=== PATIENT | male | born 2000 | race Caucasian/White ===

== ENCOUNTER 2022-04-23 19:18 | Inpatient (IN) | payer BC ==
[2022-04-23] MEDS ORDERED: Albuterol/Ipratropium 3.0-0.5 MG/3 ML Neb Soln NEB ONE (20:14)
[2022-04-23] MEDS ORDERED: Albuterol/Ipratropium 4 GM Inhalation Spray INH ONE (20:25)
[2022-04-23] MEDS ORDERED: Ketorolac 30 MG/ML SDV IVPUSH ONE (20:44)
[2022-04-23 20:55] LABS: CARBON DIOXIDE,CO2 28.1 mmol/L (21.0-32.0); POTASSIUM,K 3.8 mmol/L (3.5-5.1)
[2022-04-23] MEDS ORDERED: Sodium Chloride 0.9% 10 ML Syringe FLUSH PRN ×2 (21:12→21:23)
[2022-04-23] MEDS ORDERED: Sodium Chloride 0.9% 1,000 ML IV ONE ×2 (21:13→21:14)
[2022-04-23] MEDS ORDERED: cefTRIAXone 1 GM in Sodium Chloride 0.9% 50 ML IV ONE (21:13)
[2022-04-23] MEDS: Sodium Chloride 0.9% 2.5 ML Syringe FLUSH PRN ×2 (21:22→21:35)
[2022-04-23] MEDS ORDERED: Iopamidol 755 MG/ML 500 ML Multipack Bottle IVPUSH ONE (21:23)
[2022-04-23] MEDS ORDERED: Sodium Chloride 0.9% 2.5 ML Syringe FLUSH PRN (21:23)
[2022-04-23] MEDS ORDERED: Azithromycin 500 MG in Sodium Chloride 0.9% 250 ML IV ONE (22:21)
[2022-04-24] MEDS ORDERED: Levofloxacin/Dextrose 5%-Water 750 MG in Premix Bag 1 BAG IV ONE (00:30)
[2022-04-24] MEDS: Enoxaparin 40 MG/0.4 ML Syringe SUBCUT SCH ×2 (00:55→23:15)
[2022-04-24] MEDS: Ondansetron 4 MG/2 ML SDV IVPUSH SCH ×5 (00:55→14:20)
[2022-04-24] MEDS: Albuterol/Ipratropium 3.0-0.5 MG/3 ML Neb Soln NEB PRN ×3 (00:55→18:08)
[2022-04-24] MEDS: Lactated Ringers 1,000 ML IV SCH ×2 (00:58→10:37)
[2022-04-24] MEDS: Acetaminophen 325 MG Tab PO PRN ×2 (05:09→10:35)
[2022-04-24 06:24] LABS: CARBON DIOXIDE,CO2 25.1 mmol/L (21.0-32.0); POTASSIUM,K 3.8 mmol/L (3.5-5.1)
[2022-04-24 07:05] LABS: INFLUENZA A NAA NEGATIVE (NEGATIVE); INFLUENZA B NAA NEGATIVE (NEGATIVE)
[2022-04-24] MEDS: Ibuprofen 400 MG Tab PO PRN ×2 (12:07→18:21)
[2022-04-24] MEDS: guaiFENesin 100 MG/5 ML Soln 5 ML UD Cup PO PRN ×3 (12:25→23:08)
[2022-04-24] MEDS ORDERED: Ondansetron 4 MG/2 ML SDV IVPUSH PRN (18:52)
[2022-04-24] MEDS: Levofloxacin/Dextrose 5%-Water 750 MG in Premix Bag 1 BAG IV SCH (21:07)
[2022-04-25] MEDS: Ibuprofen 400 MG Tab PO PRN (04:51)
[2022-04-25] MEDS: guaiFENesin 100 MG/5 ML Soln 5 ML UD Cup PO PRN ×3 (04:53→18:08)
[2022-04-25 05:07] LABS: BORDETELLA PARAPERT IS1001 Not Detected (Not Detected)
[2022-04-25 06:33] LABS: CARBON DIOXIDE,CO2 25.6 mmol/L (21.0-32.0); POTASSIUM,K 3.9 mmol/L (3.5-5.1)
[2022-04-25 09:17] LABS: CARBON DIOXIDE,CO2 24.3 mmol/L (21.0-32.0); POTASSIUM,K 3.9 mmol/L (3.5-5.1)
[2022-04-25] MEDS ORDERED: REMDESIVIR 200 MG in Sodium Chloride 0.9% 250 ML IV ONE (09:30)
[2022-04-25] MEDS: Dexamethasone 4 MG Tab PO SCH (09:55)
[2022-04-25] MEDS: Levofloxacin/Dextrose 5%-Water 750 MG in Premix Bag 1 BAG IV SCH (20:56)
[2022-04-26] MEDS: Enoxaparin 40 MG/0.4 ML Syringe SUBCUT SCH (00:17)
[2022-04-26] MEDS: guaiFENesin 100 MG/5 ML Soln 5 ML UD Cup PO PRN (04:20)
[2022-04-26 06:54] LABS: CARBON DIOXIDE,CO2 27.2 mmol/L (21.0-32.0)
[2022-04-26] MEDS ORDERED: REMDESIVIR 100 MG in Sodium Chloride 0.9% 100 ML IV SCH (09:00)
[2022-04-26] MEDS: Dexamethasone 4 MG Tab PO SCH (09:41)
== END 2022-04-26 14:40 | disposition home or self-care (01) | DRG 137 ==
LOC: MW.ED 19:18 → MW.MS 22:26
PROVIDERS: ADMIT Student in an Organized Health Care Education/Training Program; ATTEND Student in an Organized Health Care Education/Training Program
PROC: 8E0ZXY6 Isolation (ICD-10-PCS; principal; 2022-04-24)
PROC: XW033E5 Introduction of Remdesivir Anti-infective into Peripheral Vein, Percutaneous Approach, New Technology Group 5 (ICD-10-PCS; 2022-04-25)
PROC: 3E0DX3Z Introduction of Anti-inflammatory into Mouth and Pharynx, External Approach (ICD-10-PCS; 2022-04-25)
DX: U07.1 COVID-19 (principal); J12.82 Pneumonia due to coronavirus disease 2019; J96.01 Acute respiratory failure with hypoxia; Z88.1 Allergy status to other antibiotic agents
CPT/HCPCS: 36415; 71045; 71045-26; 71275; 71275-26; 80048; 80053; 82248; 83605; 83735; 83880; 84100; 84443; 84484; 85025; 85379; 87040; 87486; 87581; 87633; 87798; 87899; 93005; 93010; 96365; 99284; 99285-25; A9270-GY; J0456; J0696; J1650; J1885; J1956; J2405; J3490; J7030; J7050; J7120; J7620-GY; J8540; Q9967; U0002